=== PATIENT | male | born 1995 | race Caucasian/White ===

== ENCOUNTER 2023-03-01 09:31 | Emergency (ER) | payer OTHER, SELFPAY ==
[2023-03-01 09:43] VITALS: BP 130/95; PULSE 88; RESP 20; TEMP 36.2; O2SAT 98; BMI 25.4
--- NOTE | 2023-03-01 09:49 | DI.US.S_ITS ---
PROCEDURE: US SCROTUM INDICATIONS: TESTICULAR PAIN right TECHNIQUE: Real-time scanning was performed of the scrotum and testicles, with image documentation. Color and pulse Doppler interrogation was performed of both testicles. COMPARISON: None. FINDINGS: Right: Testicle is normal in size at with a 5.2 x 1.9 x 3.1 cm, and homogenous in echotexture. Small complex epididymal head cyst measuring 6 mm. Epididymis is otherwise normal in overall size and morphology. No increased vascularity. No hydrocele or varicoceles. Overlying scrotal skin is normal in thickness. Appropriate arterial and venous flow. Left: Testicle is relatively diminutive in size at 2.7 x 1.5 x 2.2 cm, and homogeneous in echotexture. Epididymis is normal in overall size and morphology. No hydrocele or varicoceles. Overlying scrotal skin is normal in thickness. Appropriate arterial and venous flow. Doppler: Color and pulse Doppler demonstrate normal and symmetric arterial flow in both testicles. IMPRESSION: 1. Normal morphology to both testicles of though asymmetrically diminutive left testicle. 2. Normal vascular flow in each testicle.. 3. No explanation for right testicular pain. Dictated by: Dianna Pittman M.D. on 03/01/2023 at 10:38 Approved by: Dianna Pittman M.D. on 03/01/2023 at 10:41
--- NOTE | 2023-03-01 09:57 | ED.MALEGU ---
HPI - Male Genitourinary General Chief complaint: Urogenital-Male Stated complaint: testicular torsion Time Seen by Provider: 03/01/23 09:50 Source: patient Mode of arrival: Ambulatory History of Present Illness HPI Narrative: 27-year-old male with no reported past medical history presents for right-sided testicular pain. Patient states that last night he was having intercourse with his when he had post ejaculatory pain. This morning his right testicle was hurting and he was referred to the ER to rule out testicular torsion. He states that he has some burning with urination, denies penile discharge. Denies concern for STIs. 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 Related Data Previous Rx's Medication Instructions Recorded gabapentin 300 mg capsule 300 mg PO TID #60 caps 03/01/23 Review of Systems Review of Systems Narrative: CONSTITUTIONAL- Denies: fever, chills, fatigue HEENT- Denies: sore throat, nosebleed, vision changes RESPIRATORY- Denies: shortness of breath, cough, wheezing CARDIAC- Denies: chest pain, edema, orthopnea GI- Denies: abdominal pain, nausea, vomiting, constipation, diarrhea -reports: Testicular pain, dysuria Denies: frequency, hematuria, flank pain MSK- Denies: extremity pain, extremity swelling, joint pain, joint swelling SKIN- Denies: rash, itching, burn, swelling NEUROLOGICAL- Denies: headache, numbness, weakness, dizziness PSYCHIATRIC- Denies: anxiety, depression, suicidal ideation, homicidal ideation Patient History Social History Smoking Status: Never smoker Smoking Status: Never smoker alcohol intake frequency: 0-2 drinks per day Alcohol type: beer Substance Use Type: does not use Exam Initial Vital Signs Initial Vital Signs: Vital Signs Temperature 97.2 F L 03/01/23 09:43 Pulse Rate 88 03/01/23 09:43 Respiratory Rate 20 03/01/23 09:43 Blood Pressure 130/95 H 03/01/23 09:43 Pulse Oximetry 98 03/01/23 09:43 Oxygen Delivery Method Room Air 03/01/23 09:43 Const: Awake, alert, no acute distress, nontoxic appearing Eyes: PERRL, EOMI, conjunctiva normal ENT: Atraumatic, dentition normal, mucous membranes moist Cardiac: regular rate, regular rhythm RESP: unlabored, clear bilaterally, no wheezing GI: Atraumatic, soft, nontender, nondistended, no rebound, no guarding : Inspection normal, no reproducible tenderness to palpation right testicle, left testicle not palpated, penis normal MSK: Atraumatic, full range of motion, pulses equal Skin: Warm, Dry, intact, no rashes Neuro: AO x3, CN II-XII grossly intact, moves all extremities Psych: affect normal, mood normal, not suicidal, not homicidal Course Course Course Narrative: Well-appearing patient with testicular pain since last night. Physical exam is unremarkable, no reproducible tenderness over the testicle. Orders Ordered: ED Orders 03/01/23 09:35 UA Complete [Urinalysis and Microscopic] Stat Urine Microscopic Stat 03/01/23 09:49 US scrotum Stat Reevaluation(s) Reevaluation #1: Ultrasound is negative for acute findings, patient does appear to have a very small, mobile left testicle on ultrasound, however no other acute abnormalities identified with this testicle. Urinalysis negative for acute findings. Patient advised of his lab and imaging results, I counseled I do not know the cause of his pain, but recommended follow up with Urology. In the interim he may trial gabapentin for his post ejaculatory pain. Recommended anti-inflammatories and Tylenol as needed for pain. ED return precautions discussed at bedside. Patient expressed understanding of the plan and is in agreement at this time. All questions answered at the time of discharge. Vital Signs Vital signs: Vital Signs - 8 hr 03/01/23 09:43 Temperature 97.2 F L Pulse Rate 88 Respiratory Rate 20 Blood Pressure 130/95 H Pulse Oximetry 98 Oxygen Delivery Method Room Air MDM - Male Genitourinary Lab Data Labs: Lab Results 03/01/23 03/01/23 Range/Units 09:35 09:35 Urine Color Yellow Urine Appearance Clear Urine pH 5.5 (4.5-8.0) Ur Specific [place] >=1.030 H (1.000-1.035) Urine Protein Negative (Negative) Urine Glucose (UA) Negative (Negative) g/dL Urine Ketones Trace H (NEGATIVE) Urine Occult Blood Negative (Negative) Urine Nitrate Negative (Negative) Urine Bilirubin Negative (NEGATIVE) Urine Urobilinogen 0.2 (0.2) E.U./dL Ur Leukocyte Esterase Negative (NEGATIVE) Urine RBC 0-1/hpf Not Reportable (0-5/HPF) Urine WBC 1-5/hpf Not Reportable (0-5/HPF) Ur Squamous Epith Cells 1-5 /hpf Not Reportable (0-5/HPF) Urine Bacteria None seen Not Reportable (None) Ur Culture Indicated? Cult not indicated Cult not indicated Discharge Plan Departure Patient Disposition: Home Clinical Impression: Left testicular pain Instructions: DI for Testicular Pain Prescriptions: New gabapentin 300 mg capsule 300 mg PO TID Qty: 60 0RF Referrals: Raquel Hyde MD [Physician] - Provider,Sweta ALVA [Primary Care Provider] - Stand Alone Forms: Patient Portal/API, Work Release Note
[2023-03-01 10:10] LABS: Bacteria Urine None Seen; Culture Indicated Urine Cult Not Indicated; RBC Urine 0-1/HPF (0-5/HPF); Squamous Epithelial Cell Urine 1-5 /HPF (0-5/HPF); WBC Urine 1-5/HPF (0-5/HPF)
[2023-03-01 10:32] LABS: Appearance Urine UA CLEAR; Bilirubin Urine UA NEGATIVE (NEGATIVE); Color Urine UA YELLOW; Glucose Urine UA NEGATIVE (Negative); Ketones Urine UA TRACE (NEGATIVE); Leukocyte Esterase Urine UA NEGATIVE (NEGATIVE); Nitrite Urine UA NEGATIVE (Negative); Occult Blood Urine UA NEGATIVE (Negative); Protein Urine UA NEGATIVE (Negative); Specific Gravity Urine UA >=1.030 (1.000-1.035); Urobilinogen Urine UA 0.2 E.U./dL (0.2); pH Urine UA 5.5 (4.5-8.0)
[2023-03-01 11:05] VITALS: BP 127/86; PULSE 72; O2SAT 98
[2023-03-01 11:09] LABS: Culture Indicated Urine Cult Not Indicated
[2023-03-01 11:20] VITALS: BP 118/83; PULSE 76; RESP 14; O2SAT 98
== END 2023-03-01 11:22 | disposition home or self-care (01) ==
PROVIDERS: Emergency Provider Emergency Medicine
DX: N50.812 Left testicular pain (principal)
CPT/HCPCS: 76870; 81001; 81015; 99283

== ENCOUNTER 2023-03-08 09:24 | Emergency (ER) | payer OTHER, SELFPAY ==
[2023-03-08 09:29] VITALS: BP 147/82; PULSE 91; RESP 20; TEMP 36.8; O2SAT 99; BMI 25.1
[2023-03-08 09:51] LABS: Appearance Urine UA CLEAR; Bilirubin Urine UA NEGATIVE (NEGATIVE); Color Urine UA YELLOW; Glucose Urine UA NEGATIVE (Negative); Ketones Urine UA NEGATIVE (NEGATIVE); Leukocyte Esterase Urine UA NEGATIVE (NEGATIVE); Nitrite Urine UA NEGATIVE (Negative); Occult Blood Urine UA 2+ (Negative); Protein Urine UA NEGATIVE (Negative)
[2023-03-08 09:54] LABS: Bacteria Urine None Seen; Culture Indicated Urine Cult Not Indicated; RBC Urine 10-30/HPF (0-5/HPF); Squamous Epithelial Cell Urine None Seen (0-5/HPF); WBC Urine None Seen (0-5/HPF)
--- NOTE | 2023-03-08 11:00 | ED.MALEGU ---
HPI - Male Genitourinary General Chief complaint: Urogenital-Male Stated complaint: blood in urine Time Seen by Provider: 03/08/23 10:12 Source: patient Mode of arrival: Ambulatory History of Present Illness HPI Narrative: Patient here for painless hematuria, 1 event, this morning. Patient states he was urinating as a usually would, the stream was splitting and so he grabbed the shaft of his penis to cut it off, the stream, wiped himself, and then resume voiding and noticed some blood in the urine without clots. No recent urethral discharge. Patient and are monogamous. was seen here earlier this week for hematuria but no infection. She is . She has informed her primary care/OBGYN provider. Both of them have had upper respiratory cough cold congestion runny nose symptoms. Patient denies any history of STDs. Patient was seen in the past week here for injury to the testicle. He had ultrasound of the testicles which were unremarkable. Patient states he had sex prior to that arrival and felt like he hurt his testicle. No unusual sexual activity last night according to patient. Patient in no distress at this time. Denies any prostate problems Related Data Previous Rx's Medication Instructions Recorded gabapentin 300 mg capsule 300 mg PO TID #60 caps 03/01/23 Allergies Allergy/AdvReac Type Severity Reaction Status Date / Time azithromycin [From Zithromax] Allergy Hives Verified 03/08/23 09:35 Review of Systems Review of Systems Narrative: GENERAL: negative chills, fatigue, malaise, fever, sweats. HEENT: negative sinus pain, ear pain, sore throat RESPIRATORY: negative dyspnea, cough CARDIOVASCULAR: negative chest pain, palpitations GASTROINTESTINAL: negative nausea, vomiting, abdominal pain : negative dysuria, frequency, positive hematuria MUSCULOSKELETAL: negative muscle or bony pain SKIN: negative rash, skin lesions NEUROLOGIC: negative weakness, numbness ROS Unobtainable: All systems reviewed & are unremarkable except as noted in HPI and below Patient History Social History Smoking Status: Never smoker Smoking Status: Never smoker alcohol intake frequency: 0-2 drinks per day Alcohol type: beer Substance Use Type: does not use Exam Narrative Exam Narrative: GENERAL: in no distress, not toxic not dyspneic HEAD: Normocephalic. EYES: Pupils equal round GASTROINTESTINAL: Abdomen soft, non-tender : Normal external exam. No lesions. Patient is circumcised. Nontender bilateral testicles. No blood at meatus. No discharge at meatus. Penis is nontender. No bruising. EXTREMITIES: No gross deformities. BACK: No flank tenderness. NEURO: AOx4. SKIN: Warm and dry PSYCH: Not anxious, is cooperative Initial Vital Signs Initial Vital Signs: Vital Signs Temperature 98.3 F 03/08/23 09:29 Pulse Rate 91 H 03/08/23 09:29 Respiratory Rate 20 03/08/23 09:29 Blood Pressure 147/82 H 03/08/23 09:29 Pulse Oximetry 99 03/08/23 09:29 Oxygen Delivery Method Room Air 03/08/23 09:29 Course Orders Ordered: ED Orders 03/08/23 09:37 Respiratory Panel (Film Array) Stat 03/08/23 09:40 Urinalysis and Microscopic Stat 03/08/23 10:05 Chlamydia Gonorrhea PCR -URINE Stat Discontinued Medications Ondansetron HCl (Ondansetron 4 Mg Odt) 4 mg SL NOW PRN PRN Reason: Nausea And Vomiting Ondansetron HCl (Ondansetron 4 Mg/2 Ml Inj) 4 mg IV NOW PRN PRN Reason: Nausea And Vomiting Vital Signs Vital signs: Vital Signs - 8 hr 03/08/23 09:29 Temperature 98.3 F Pulse Rate 91 H Respiratory Rate 20 Blood Pressure 147/82 H Pulse Oximetry 99 Oxygen Delivery Method Room Air MDM - Male Genitourinary Lab Data Labs: Lab Results 03/08/23 03/08/23 03/08/23 Range/Units 09:37 09:40 10:05 Urine Color Yellow Urine Appearance Clear Urine pH 7.0 (4.5-8.0) Ur Specific [place] 1.020 (1.000-1.035) Urine Protein Negative (Negative) Urine Glucose (UA) Negative (Negative) g/dL Urine Ketones Negative (NEGATIVE) Urine Occult Blood 2+ H (Negative) Urine Nitrate Negative (Negative) Urine Bilirubin Negative (NEGATIVE) Urine Urobilinogen 1.0 (0.2) E.U./dL Ur Leukocyte Esterase Negative (NEGATIVE) Urine RBC 10-30/hpf H (0-5/HPF) Urine WBC None seen (0-5/HPF) Ur Squamous Epith Cells None seen (0-5/HPF) Urine Bacteria None seen (None) Ur Culture Indicated? Cult not indicated Chlamy pneumoniae PCR Not detected (Not Detect) Adenovirus (PCR) Not detected (Not Detect) B.parapertussis DNA PCR Not detected (Not Detecte) Ur Chlamydia DNA (PCR) Not detected Coronavirus OC43 (PCR) Not detected (Not Detect) Coronavirus HKU1 (PCR) Not detected (Not Detect) Coronavirus 229E (PCR) Not detected (Not Detect) SARS-CoV-2 (PCR) Not detected (Not Detecte) Coronavirus NL63 (PCR) Not detected (Not Detect) Human Metapneumovir PCR Not detected (Not Detect) Influenza A (PCR) Not detected (Not Detect) Influenza Type A (PCR) Not detected (Not Detect) Influenza Type B (PCR) Not detected (Not Detect) M. pneumoniae (PCR) Not detected (Not Detect) Parainfluenza 1 (PCR) Not detected (Not Detect) Parainfluenza 2 (PCR) Not detected (Not Detect) Parainfluenza 3 (PCR) Not detected (Not Detect) Parainfluenza 4 (PCR) Not detected (Not Detect) RSV (PCR) Not detected (Not Detect) Entero/Rhino (PCR) Detected H (Not Detect) N gonorrhoeae DNA (PCR) Not detected MDM Narrative Medical decision making narrative: Patient here for painless hematuria, 1 event, this morning. Patient states he was urinating as a usually would, the stream was splitting and so he grabbed the shaft of his penis to cut it off, the stream, wiped himself, and then resume voiding and noticed some blood in the urine without clots. No recent urethral discharge. Patient and are monogamous. was seen here earlier this week for hematuria but no infection. She is . She has informed her primary care/OBGYN provider. Both of them have had upper respiratory cough cold congestion runny nose symptoms. Patient denies any history of STDs. Patient was seen in the past week here for injury to the testicle. He had ultrasound of the testicles which were unremarkable. Patient states he had sex prior to that arrival and felt like he hurt his testicle. No unusual sexual activity last night according to patient. Patient in no distress at this time. Denies any prostate problems. After history and exam urinalysis GC chlamydia viral panel MDM CC: Hematuria Complicating co-morbidities: Recent injury to the testicle in the past week Data collected from: Patient and Medical records reviewed: Ultrasound scrotal results March 01, 2023 Differential considered: Includes but not limited to cystitis kidney stone STI UTI Exam documented above, pertinent findings include: Nontender testicles and penis Lab Test results independently reviewed as above. Pertinent findings: Urinalysis 2+ blood negative leukocyte esterase negative nitrate WBC none seen RBC 10 30 no bacteria no epithelial cell Treatments: None indicated this time Re-evaluations: Reviewed results with patient. Reviewed treatment plan. They agree for follow up with Urology. Return precautions reviewed. They desire discharge home Discussion: Appropriate for discharge home. Exam and laboratory studies are reassuring. No blood work or imaging indicated at this time. Nonspecific painless hematuria, referral for Urology provided again. Patient agrees with treatment plan. They desire discharge home. Patient states he is had kidney stone in the past and this does not feel like 1. Never had pain Diagnosis: Hematuria Discharge Plan Departure Patient Disposition: Home Clinical Impression: Hematuria Instructions: DI for Hematuria Activity Restrictions/Additional Instructions: Please call provided urology office today for office re-evaluation in a week. At this time urinalysis is reassuring, no antibiotics indicated. There are cultures pending and we will call you if they are abnormal. Your respiratory panel is pending results and you may call back for results. Refrain from any sexual activity at this time until seen by Urology services with Dr. Hyde. This is the same referral provider given to recently for your injury. Return if worse or if any questions or concerns. Keep well hydrated. Prescriptions: No Action gabapentin 300 mg capsule 300 mg PO TID Qty: 60 0RF Referrals: Raquel Hyde MD [Physician] - Provider,Sweta ALVA [Primary Care Provider] - Stand Alone Forms: Patient Portal/API
[2023-03-08 11:28] LABS: Adenovirus Not Detected (Not Detect); B. parapertussis Not Detected (Not Detecte); Bordetella pertussis Not Detected (Not Detect); Chlamydophila pneumoniae Not Detected (Not Detect); Coronavirus 229E Not Detected (Not Detect); Coronavirus HKU1 Not Detected (Not Detect); Coronavirus NL 63 Not Detected (Not Detect); Coronavirus OC43 Not Detected (Not Detect); Human Metapneumovirus Not Detected (Not Detect); Human Rhinovirus/Enterovirus Detected (Not Detect); Influenza A Not Detected (Not Detect); Influenza A(No subj detected) Not Detected (Not Detect); Influenza B Not Detected (Not Detect); Mycoplasma pneumoniae Not Detected (Not Detect); Parainfluenza Virus 1 Not Detected (Not Detect); Parainfluenza Virus 2 Not Detected (Not Detect); Parainfluenza Virus 3 Not Detected (Not Detect); Parainfluenza Virus 4 Not Detected (Not Detect); Respiratory Syncytial Virus Not Detected (Not Detect); SARS- CoV-2 Not Detected (Not Detecte)
[2023-03-08 11:41] LABS: Urine N gonorrhoeae NOT DETECTED
[2023-03-08 11:42] LABS: Urine Chlamydia NOT DETECTED
== END 2023-03-08 11:11 | disposition home or self-care (01) ==
PROVIDERS: Emergency Provider Emergency Medicine
DX: R31.9 Hematuria, unspecified (principal); Z20.822 Contact with and (suspected) exposure to COVID-19
CPT/HCPCS: 81001; 87491; 87591; 87633; 99281; 99282

== ENCOUNTER 2023-08-27 19:22 | Emergency (ER) | payer OTHER, SELFPAY ==
[2023-08-27] VITALS (9 sets, daily range): BP systolic 113–129; BP diastolic 70–80; PULSE 90–125; RESP 18–24; TEMP 37.2; O2SAT 96–97; BMI 24.3
[2023-08-27] MEDS: SODIUM CHLORIDE 0.9% 1,000 ML 1000 ML IV ×2 (19:53→21:10)
[2023-08-27 19:56] LABS: Add Manual Diff / Slide Review NO; Basophils Absolute Auto 0 /uL (0-100); Basophils Percent Auto 0.3 % (0-2); Eosinophils Absolute Auto 0 /uL (0-450); Eosinophils Percent Auto 0.4 % (2-4); Hematocrit 44.8 % (41-53); Hemoglobin 15.3 g/dL (13.5-17.5); Lymphocytes Absolute Auto 500 /uL (1100-4500); Lymphocytes Percent Auto 5.2 % (25-40); Mean Corpuscular HGB Conc 34.2 % (30-36); Mean Corpuscular Hemoglobin 31.3 PG (26-34); Mean Corpuscular Volume 91.3 fL (80-100); Monocytes Absolute Auto 1100 /uL (0-900); Monocytes Percent Auto 10.8 % (3-14); Neutrophils Absolute Auto 8700 /uL (1500-7000); Neutrophils Percent Auto 83.3 % (50-75); Platelet Count 228 X10^3/uL (150-400); Red Cell Distribution Width 13.1 % (11.6-14.8); White Blood Cell Count 10.5 X10^3/uL (4.5-11.0)
[2023-08-27 20:04] LABS: INR 1.1 (0.9-1.3)
[2023-08-27 20:07] LABS: PTT Partial Thromboplastin Tim 34 SECONDS (25.1-36.5)
[2023-08-27 20:08] LABS: Lactate (Lactic Acid) 1.2 mmol/L (0.7-2.1)
--- NOTE | 2023-08-27 20:08 | ED.NAVMDI ---
HPI - Nausea/Vomiting/Diarrhea General Chief complaint: Nausea/Vomiting/Diarrhea Stated complaint: D/F/chills T-2 Time Seen by Provider: 08/27/23 19:41 Source: patient Mode of arrival: Ambulatory History of Present Illness HPI Narrative: 27-year-old male who is here for evaluation of diarrhea, fatigue, chills for the past 2 days. He just recently returned home from out of state travel. Has had multiple episodes of diarrhea. He has not vomiting. No nausea. Is having some generalized abdominal pain around the times diarrhea. No blood in the stool. No dark-colored stool. Has had a decreased urine output. No one else in the family is sick. No skin rashes. No prior abdominal surgeries. Related Data Previous Rx's Medication Instructions Recorded gabapentin 300 mg capsule 300 mg PO TID #60 caps 03/01/23 Allergies Allergy/AdvReac Type Severity Reaction Status Date / Time azithromycin [From Zithromax] AdvReac Hives Verified 08/27/23 19:26 Review of Systems Constitutional Constitutional: Reports system reviewed and no additional complaints, except as documented Cardiovascular Cardiovascular: Reports system reviewed and no additional complaints, except as documented Respiratory Respiratory: Reports system reviewed and no additional complaints, except as documented Gastrointestinal Gastrointestinal: Reports system reviewed and no additional complaints, except as documented Genitourinary Genitourinary: Reports system reviewed and no additional complaints, except as documented Integumentary/Breasts Skin/Breast: Reports system reviewed and no additional complaints, except as documented Patient History Social History Smoking Status: Never smoker Smoking Status: Never smoker alcohol intake frequency: 0-2 drinks per day Alcohol type: beer Substance Use Type: does not use Exam Initial Vital Signs Initial Vital Signs: Vital Signs Temperature 99.0 F 08/27/23 19:26 Pulse Rate 125 H 08/27/23 19:26 Respiratory Rate 24 08/27/23 19:26 Blood Pressure 129/70 08/27/23 19:26 Pulse Oximetry 96 08/27/23 19:26 Oxygen Delivery Method Room Air 08/27/23 19:26 Const General: cooperative, well developed and No ill appearing HENMT Head: normal to inspection and normocephalic Resp Effort & Inspection: normal respiratory effort Cardio Rate: regular rate GI Inspection: normal to inspection and non-distended Palpation: soft, No firm, No guarding, No rigid and tender (Diffuse tender) Skin General: no rashes or lesions noted Course Orders Ordered: ED Orders 08/27/23 19:35 RT Consult Eval and Treat NOW 08/27/23 19:41 GI Panel (Film Array) Stat 08/27/23 19:47 Blood Culture Stat Complete Blood Count AUTO DIFF Stat Comprehensive Metabolic Panel Stat Lactate (Lactic Acid) Stat Lipase Stat PTT Partial Thromboplastin Nimesh Stat Procalcitonin Stat Prothrombin Time INR Stat Discontinued Medications Sodium Chloride (Normal Saline 0.9%) 1,000 mls @ 1,000 mls/hr IV BOLUS ONE Stop: 08/27/23 20:34 Last Infusion: 08/27/23 20:39 Dose: Infused Documented By: Admin: 08/27/23 19:53 Dose: 1,000 mls/hr Documented By: MARCEL Sodium Chloride (Normal Saline 0.9%) 1,000 mls @ 1,000 mls/hr IV BOLUS ONE Stop: 08/27/23 21:53 Last Infusion: 08/27/23 21:56 Dose: Infused Documented By: Admin: 08/27/23 21:10 Dose: 1,000 mls/hr Documented By: MAAME Ondansetron HCl (Ondansetron 4 Mg/2 Ml Inj) 4 mg IV NOW PRN PRN Reason: Nausea And Vomiting Ondansetron HCl (Ondansetron 4 Mg Odt) 4 mg SL NOW PRN PRN Reason: Nausea And Vomiting Vital Signs Vital signs: Vital Signs - 8 hr 08/27/23 19:26 08/27/23 19:52 08/27/23 19:54 Temperature 99.0 F Pulse Rate 125 H 107 H Respiratory Rate 24 Blood Pressure 129/70 121/72 Pulse Oximetry 96 96 Oxygen Delivery Method Room Air 08/27/23 19:54 08/27/23 20:00 08/27/23 20:00 Temperature Pulse Rate 104 H 102 H Respiratory Rate 20 Blood Pressure 121/74 Pulse Oximetry 96 96 Oxygen Delivery Method 08/27/23 20:15 08/27/23 20:15 08/27/23 20:36 Temperature Pulse Rate 100 H 98 H Respiratory Rate 21 Blood Pressure 122/76 Pulse Oximetry 97 96 Oxygen Delivery Method 08/27/23 21:00 08/27/23 21:30 08/27/23 21:54 Temperature Pulse Rate 95 H 93 H 90 Respiratory Rate 24 18 23 Blood Pressure Pulse Oximetry 96 96 96 Oxygen Delivery Method 08/27/23 21:54 Temperature Pulse Rate Respiratory Rate Blood Pressure 113/80 Pulse Oximetry Oxygen Delivery Method MDM - Nausea/Vomiting/Diarrhea Lab Data Attestation: I reviewed the patient's lab results. 08/27/23 19:47 08/27/23 19:47 Labs: Lab Results 08/27/23 08/27/23 Range/Units 19:41 19:47 WBC 10.5 (4.5-11.0) X10^3/uL RBC 4.90 (4.5-5.9) X10^6/uL Hgb 15.3 (13.5-17.5) g/dL Hct 44.8 (41-53) % MCV 91.3 (80-100) fL MCH 31.3 (26-34) PG MCHC 34.2 (30-36) % RDW 13.1 (11.6-14.8) % Plt Count 228 (150-400) X10^3/uL Neut % (Auto) 83.3 H (50-75) % Lymph % (Auto) 5.2 L (25-40) % Grand % (Auto) 10.8 (3-14) % Eos % (Auto) 0.4 L (2-4) % Baso % (Auto) 0.3 (0-2) % Neut # (Auto) 8700 H (2128-0765) /uL Lymph # (Auto) 500 L (8009-8357) /uL Grand # (Auto) 1100 H (0-900) /uL Eos # (Auto) 0 (0-450) /uL Baso # (Auto) 0 (0-100) /uL PT 13.0 H (9.4-12.5) SECONDS INR 1.1 (0.9-1.3) APTT 34 (25.1-36.5) SECONDS Sodium 138 (137-145) mmol/L Potassium 3.3 L (3.4-5.1) mmol/L Chloride 107 (98-107) mmol/L Carbon Dioxide 23 (22-32) mmol/L BUN 14 (9-20) mg/dL Creatinine 0.76 (0.66-1.25) mg/dL Estimated GFR > 60 (>60) mL/min BUN/Creatinine Ratio 18.4 (6-22) Glucose 112 H (70-100) mg/dL Lactate 1.2 (0.7-2.1) mmol/L Calcium 9.1 (8.4-10.2) mg/dL Total Bilirubin 0.9 (0.2-1.3) mg/dL AST 179 H (17-59) IU/L ALT 160 H (<50) IU/L Alkaline Phosphatase 86 (38-126) U/L Total Protein 7.9 (6.3-8.2) g/dL Albumin 4.3 (3.5-5.0) g/dL Globulin 3.6 (1.7-4.1) g/dL Albumin/Globulin Ratio 1.2 (1.0-2.8) Lipase 253 (23-300) U/L Procalcitonin 0.32 (<0.5) ng/mL Stl C. cayetanensis PCR Not detected (Not Detect) Stool Rotavirus (PCR) Not detected (Not Detect) Stool Adenovirus (PCR) Not detected (Not Detect) Stool Astrovirus (PCR) Detected (Not Detect) Stool Cryptosporidium PCR Not detected (Not Detect) Stl E.coli Shiga Tox PCR Not detected (Not Detect) St Sh/Enteroin Ecoli PCR Not detected (Not Detect) Stl Enterotoxigenic E PCR Not detected (Not Detect) Stool EPEC (PCR) Not detected (Not Detect) Stl E. histolytica PCR Not detected (Not Detect) Stool Giardia Lamblia PCR Not detected (Not Detect) Stool Sapovirus (PCR) Not detected (Not Detect) Stl P. shigelloides PCR Not detected (Not Detect) St Y.enterocolitica PCR Not detected (Not Detect) Stool Vibrio (PCR) Not detected (Not Detect) Stl Vibrio cholerae PCR Not detected (Not Detect) Stl Enteroaggr Ecoli PCR Not detected (Not Detect) Stl Norovirus GI/GII PCR Not detected (Not Detect) Campylobacter (PCR) Not detected (Not Detect) C. difficile Tox (PCR) Not detected (Not Detect) Salmonella (PCR) Not detected (Not Detect) MDM Narrative Medical decision making narrative: Patient states that he was feeling much better after receiving fluids. He is tolerating oral intake. His stool sample was positive for Astrovirus. This does explain his presenting symptoms. I discuss this with him. There was no indication for antibiotics. We did discuss the use of antidiarrheal medicines given the fact that he is having so much diarrhea that he was becoming dehydrated despite trying to stay hydrated by mouth. No indication for surgical consultation. Will discharge home with return precautions and follow-up instructions. He expressed understanding and agreement. Discharge Plan Departure Patient Disposition: Home Clinical Impression: Diarrhea Instructions: Diarrhea Activity Restrictions/Additional Instructions: Be sure that you were trying to increase the amount of fluids that you were drinking. You can consider taking an antidiarrheal medicine such as Imodium/loperamide. You can purchase this [id number]. Contact your primary provider for follow-up. Return to the emergency department for new symptoms. Prescriptions: No Action gabapentin 300 mg capsule 300 mg PO TID Qty: 60 0RF Referrals: ProviderSweta [Primary Care Provider] - Stand Alone Forms: Patient Portal/API
[2023-08-27 20:09] LABS: Alanine Aminotransferase 160 IU/L (<50); Albumin 4.3 g/dL (3.5-5.0); Albumin Globulin Ratio 1.2 (1.0-2.8); Alkaline Phosphatase 86 U/L (38-126); Aspartate Aminotransferase 179 IU/L (17-59); BUN Creatinine Ratio 18.4 (6-22); Bilirubin Total 0.9 mg/dL (0.2-1.3); Blood Urea Nitrogen 14 mg/dL (9-20); Calcium 9.1 mg/dL (8.4-10.2); Carbon Dioxide 23 mmol/L (22-32); Chloride 107 mmol/L (98-107); Estimated Glomerular Filt Rate > 60 mL/min (>60); Globulin 3.6 g/dL (1.7-4.1); Glucose 112 mg/dL (70-100); HEMOLYSIS < 15 (0-50); Lipase 253 U/L (23-300); Potassium 3.3 mmol/L (3.4-5.1); Sodium 138 mmol/L (137-145); Total Protein 7.9 g/dL (6.3-8.2)
[2023-08-27 20:25] LABS: Procalcitonin 0.32 ng/mL (<0.5)
[2023-08-27 21:12] LABS: Adenovirus F 40/41 Not Detected (Not Detect); Astrovirus Detected (Not Detect); Campylobacter Not Detected (Not Detect); Clostridium difficile toxin AB Not Detected (Not Detect); Cryptosporidium Not Detected (Not Detect); Cyclospora cayetanensis Not Detected (Not Detect); Entamoeba histolytica Not Detected (Not Detect); Enteroaggregative E.coli Not Detected (Not Detect); Enteropathogenic E.coli Not Detected (Not Detect); Enterotoxigenic E.coli It/st Not Detected (Not Detect); Giardia lamblia Not Detected (Not Detect); Norovirus GI/GII Not Detected (Not Detect); Plesiomonsa shigelloides Not Detected (Not Detect); Rotavirus A Not Detected (Not Detect); Salmonella Not Detected (Not Detect); Sapovirus Not Detected (Not Detect); Shiga-like toxin-prod E.coli Not Detected (Not Detect); Shigella/Enteroinvasive E.coli Not Detected (Not Detect); Vibrio Not Detected (Not Detect); Vibrio cholerae Not Detected (Not Detect); Yersinia enterocolitica Not Detected (Not Detect)
== END 2023-08-27 21:58 | disposition home or self-care (01) ==
PROVIDERS: Emergency Provider Emergency Medicine
DX: R19.7 Diarrhea, unspecified (principal); R53.83 Other fatigue
CPT/HCPCS: 36415; 80053; 83605; 83690; 84145; 85025; 85610; 85730; 87040; 87507; 99283; 99284

== ENCOUNTER 2023-11-12 21:41 | Emergency (ER) | payer OTHER, SELFPAY ==
[2023-11-12 21:46] VITALS: BP 137/92; PULSE 83; RESP 18; TEMP 36.8; O2SAT 98; BMI 24.3
--- NOTE | 2023-11-12 23:19 | ED.GENADULT ---
HPI - General Adult General Chief complaint: Upper Respiratory Symptoms Stated complaint: Ear ringing/sinus pressure Time Seen by Provider: 11/12/23 22:08 Source: patient Mode of arrival: Ambulatory History of Present Illness HPI narrative: 28-year-old male who is here for evaluation of upper respiratory tract infection like symptoms to include ringing in his ears, sinus congestion, sore throat. Symptoms have been present for the past 2 days. He has not tried anything for the symptoms prior to arrival. No fevers. No cough. Related Data Previous Rx's Medication Instructions Recorded gabapentin 300 mg capsule 300 mg PO TID #60 caps 03/01/23 Allergies Allergy/AdvReac Type Severity Reaction Status Date / Time azithromycin [From Zithromax] AdvReac Hives Verified 08/27/23 19:26 Review of Systems Constitutional Constitutional: Reports system reviewed and no additional complaints, except as documented ENT Ears, Nose, Mouth, and Throat: Reports system reviewed and no additional complaints, except as documented Respiratory Respiratory: Reports system reviewed and no additional complaints, except as documented Patient History Social History Smoking Status: Never smoker Smoking Status: Never smoker alcohol intake frequency: holidays/special occasions only Alcohol type: beer Substance Use Type: does not use Exam Initial Vital Signs Initial Vital Signs: Vital Signs Temperature 98.3 F 11/12/23 21:46 Pulse Rate 83 11/12/23 21:46 Respiratory Rate 18 11/12/23 21:46 Blood Pressure 137/92 H 11/12/23 21:46 Pulse Oximetry 98 11/12/23 21:46 Oxygen Delivery Method Room Air 11/12/23 21:46 [facility] Head: normal to inspection and normocephalic Ears: EAC's normal and TM abnormal bulging bilaterally, wth effusion serous bilaterally, erythematous not bilaterally and with fluid behind the TM bilaterally Resp Effort & Inspection: normal respiratory effort Skin General: no rashes or lesions noted Neuro General: patient alert, patient awake and moves all extremities Course Vital Signs Vital signs: Vital Signs - 8 hr 11/12/23 21:46 11/12/23 23:28 Temperature 98.3 F Pulse Rate 83 80 Respiratory Rate 18 20 Blood Pressure 137/92 H 128/93 H Pulse Oximetry 98 97 Oxygen Delivery Method Room Air Room Air Medical Decision Making MDM Narrative Medical decision making narrative: History and physical exam are consistent with a viral upper respiratory tract infection. There was no indication for antibiotics. Patient has not taken any medications to try to home for his symptoms. Recommended [id number] medications which we discussed here in the emergency department. I did discuss this with him. Discussed return precautions. He expressed understanding and agreement. Discharge Plan Departure Patient Disposition: Home Clinical Impression: Upper respiratory infection Instructions: DI for Viral Upper Respiratory Infection -- Adult Activity Restrictions/Additional Instructions: Recommend that you take the [id number] decongestants. You can also take Tylenol/ibuprofen for any fevers or body aches. Contact your medical department for a follow-up. Prescriptions: No Action gabapentin 300 mg capsule 300 mg PO TID Qty: 60 0RF Referrals: ProviderSweta [Primary Care Provider] - Stand Alone Forms: Patient Portal/API, Work Release Note
[2023-11-12 23:28] VITALS: BP 128/93; PULSE 80; RESP 20; O2SAT 97
== END 2023-11-12 23:29 | disposition home or self-care (01) ==
PROVIDERS: Emergency Provider Emergency Medicine
DX: J06.9 Acute upper respiratory infection, unspecified (principal)
CPT/HCPCS: 99281

== ENCOUNTER 2024-07-21 11:43 | Emergency (ER) | payer OTHER, SELFPAY ==
[2024-07-21 12:06] VITALS: BP 145/101; PULSE 79; RESP 16; TEMP 37.1; O2SAT 97; BMI 24.3
--- NOTE | 2024-07-21 13:39 | DI.RAD.S_ITS ---
PROCEDURE: XR KNEE RT 3V INDICATIONS: knee pain TECHNIQUE: 3 views of the knee were acquired. COMPARISON: None. FINDINGS: Bones: No fractures or dislocations. No suspicious bony lesions. Soft tissues: No joint effusion. No suspicious soft tissue calcifications. IMPRESSION: No acute osseous abnormality. If pain persists with conservative management, consider repeat x-ray in 10-14 days or cross-sectional imaging. Dictated by: Manuel Gambino M.D. on 07/21/2024 at 14:21 Approved by: Manuel Gambino M.D. on 07/21/2024 at 14:22
--- NOTE | 2024-07-21 14:51 | ED_ITS ---
HPI - Extremity Injury (Lower) <Taz Salomon PA-C - Last Filed: 07/21/24 15:29> General Chief Complaint: Extremity Injury, Lower Stated Complaint: Right knee pain Time Seen by Provider: 07/21/24 13:44 Source: patient Mode of arrival: Ambulatory History of Present Illness HPI Narrative: 28-year-old male presents to the ED with lingering right-sided knee pain for 4 weeks. Patient initially injured his knee 3-4 weeks ago when doing some drills at work, walking backwards and twisting his knee. At that time, the knee gave out and he fell. After that, he was on light duty in the knee improved. Last week, patient went back to regular duty and felt worsening pain in the right knee. No numbness, tingling, weakness. Patient has a PCP appointment for tomorrow, also a physical therapy appointment scheduled. Related Data Previous Rx's Medication Instructions Recorded gabapentin 300 mg capsule 300 mg PO TID #60 caps 03/01/23 Allergies Allergy/AdvReac Type Severity Reaction Status Date / Time azithromycin [From Zithromax] AdvReac Hives Verified 08/27/23 19:26 Review of Systems <Taz Salomon PA-C - Last Filed: 07/21/24 15:29> Constitutional Constitutional: Denies chills, Denies fatigue, Denies fever(s), Denies frequent falls, Denies lethargy and Denies weakness Eyes Eyes: Denies change in vision, Denies eye discharge, Denies irritation and Denies loss of vision ENT Ears, Nose, Mouth, and Throat: Denies change in voice, Denies dizziness, Denies neck pain, Denies sore throat and Denies throat swelling Cardiovascular Cardiovascular: Denies chest pain, Denies irregular heart rhythm, Denies lightheadedness, Denies palpitations, Denies dyspnea, Denies dyspnea on exertion and Denies orthopnea Respiratory Respiratory: Denies cough, Denies dyspnea, Denies dyspnea on exertion and Denies wheezing Gastrointestinal Gastrointestinal: Denies abdominal pain, Denies change in bowel habits, Denies diarrhea, Denies nausea and Denies vomiting Musculoskeletal Musculoskeletal: Denies neck pain and Denies numbness Comments: Right-sided knee pain Integumentary/Breasts Skin/Breast: Denies pruritus, Denies erythema, Denies rash and Denies wounds Neurologic Neurologic: Denies behavioral changes, Denies confusion, Denies dizziness, Denies frequent falls, Denies loss of vision, Denies numbness and Denies weakness Psychiatric Psychiatric: Denies anxiety, Denies behavioral changes, Denies confusion, Denies depression, Denies homicidal ideation and Denies suicidal ideation Endocrine Endocrine: Denies fatigue, Denies flushing and Denies palpitations Hematologic/Lymphatic Hematologic/Lymphatic: Denies easy bruising Allergic/Immunologic Allergic/Immunologic: Denies urticaria, Denies throat swelling and Denies wheezing Patient History <Taz Salomon PA-C - Last Filed: 07/21/24 15:29> Social History Smoking Status: Never smoker Smoking Status: Never smoker alcohol intake frequency: holidays/special occasions only Alcohol type: beer Exam <Taz Salomon PA-C - Last Filed: 07/21/24 15:29> Narrative Exam Narrative: Const General:?cooperative, healthy appearing and comfortable [facility] Head:?normal to inspection Ears:?hearing grossly normal bilaterally Nose:?external nose normal Face and sinus:?normal facial exam and sinuses nontender Mouth:?oral mucosae normal Throat:?posterior oropharynx normal Eyes General:?appearance normal, both eyes and all related structures Neck Neck:?normal visual inspection and no lymphadenopathy noted Resp Effort & Inspection:?normal respiratory effort Auscultation:?clear to auscultation bilaterally Cardio Rate:?regular rate Rhythm:?regular rhythm Musculoskeletal No swelling, tenderness to palpation, erythema of right knee. Patient is able to bear weight and walk. Neurovascularly intact. Neuro General:?patient alert, patient awake and patient oriented x3 Initial Vital Signs Initial Vital Signs: Vital Signs Temperature 98.7 F 07/21/24 12:06 Pulse Rate 79 07/21/24 12:06 Respiratory Rate 16 07/21/24 12:06 Blood Pressure 145/101 H 07/21/24 12:06 Pulse Oximetry 97 07/21/24 12:06 Oxygen Delivery Method Room Air 07/21/24 12:06 <Tracy Merecr DO - Last Filed: 07/25/24 12:51> Initial Vital Signs Initial Vital Signs: Vital Signs Temperature 98.7 F 07/21/24 12:06 Pulse Rate 79 07/21/24 12:06 Respiratory Rate 16 07/21/24 12:06 Blood Pressure 145/101 H 07/21/24 12:06 Pulse Oximetry 97 07/21/24 12:06 Oxygen Delivery Method Room Air 07/21/24 12:06 Course <Taz Salomon PA-C - Last Filed: 07/21/24 15:29> Orders Ordered: ED Orders 07/21/24 13:39 XR knee RT 3V Stat Vital Signs Vital signs: Vital Signs - 8 hr 07/21/24 12:06 Temperature 98.7 F Pulse Rate 79 Respiratory Rate 16 Blood Pressure 145/101 H Pulse Oximetry 97 Oxygen Delivery Method Room Air <Tracy Mercer DO - Last Filed: 07/25/24 12:51> Orders Ordered: ED Orders 07/21/24 13:39 XR knee RT 3V Stat Vital Signs Vital signs: Vital Signs - 8 hr 07/21/24 12:06 Temperature 98.7 F Pulse Rate 79 Respiratory Rate 16 Blood Pressure 145/101 H Pulse Oximetry 97 Oxygen Delivery Method Room Air MDM - Extremity Injury (Lower) <Taz Salomon PA-C - Last Filed: 07/21/24 15:29> MDM Narrative Medical decision making narrative: 28-year-old male presents to the ED with lingering right-sided knee pain for 4 weeks. An x-ray was obtained which shows no acute fractures or dislocations. Symptoms consistent with a musculoskeletal sprain/strain of the knee. Counseled patient on rest, heat, compression, elevation. Recommend patient go back on light duty for the next 2 weeks until his symptoms improve. Recommend he keep his appointment with PCP and PT as scheduled. ED return precautions were discussed with patient. Patient verbalized understanding. Medical records reviewed: Yes Discharge Plan Departure Patient Disposition: Home Clinical Impression: Knee sprain Qualifiers: Encounter type: initial encounter Involved ligament of knee: unspecified ligament Laterality: right Qualified Code(s): S83.91XA - Sprain of unspecified site of right knee, initial encounter Instructions: DI for Knee Sprain Activity Restrictions/Additional Instructions: You were evaluated in the ED today for a knee injury. Your x-ray did not show any fractures or dislocations. It appears that you have a musculoskeletal sprain/strain of the knee. It is recommended you take 800 mg of ibuprofen every 8 hours with food. You may also take 1000 mg of Tylenol every 8 hours. Rest, heat, elevation are recommended for good healing. It is also advised for you to be on light duty at work. Please follow-up with your PCP and physical therapy for further evaluation. Return to the ED if you have worsening symptoms, numbness, tingling, weakness. Prescriptions: No Action gabapentin 300 mg capsule 300 mg PO TID Qty: 60 0RF Referrals: ProviderSweta [Primary Care Provider] - Stand Alone Forms: Patient Portal/API/Survey, Work Release Note ED Sign-out <Tracy Mercer DO - Last Filed: 07/25/24 12:51> Cosign ED Attending Cosignature Attestation: I was available for consultation.
== END 2024-07-21 15:25 | disposition home or self-care (01) ==
PROVIDERS: Emergency Provider Student in an Organized Health Care Education/Training Program
DX: S83.91XA Sprain of unspecified site of right knee, initial encounter (principal); X58.XXXA Exposure to other specified factors, initial encounter
CPT/HCPCS: 73562; 99281; 99283